=== PATIENT | male | born 1975 | race Caucasian/White ===

== ENCOUNTER 2016-09-18 11:19 | Emergency (ER) | payer OTHER ==
[2016-09-18 12:18] LABS: HEMOGLOBIN 15.7 gm/dl (14.0-17.5); RED BLOOD COUNT 5.2 M/UL (4.20-5.50); WHITE BLOOD COUNT 6.6 K/UL (4.5-11.0)
[2016-09-18 12:44] LABS: BUN/CREATININE RATIO 19 (0-10)
== END 2016-09-18 13:24 | disposition home or self-care (01) ==
LOC: ER1 11:19
PROVIDERS: Nurse Practitioner Family
DX: R11.10 Vomiting, unspecified (principal); R19.7 Diarrhea, unspecified; Z90.49 Acquired absence of other specified parts of digestive tract
CPT/HCPCS: 36415; 80053; 81001; 82150; 83690; 85025; 96361; 96374; 99284; J2405

== ENCOUNTER 2016-11-28 19:06 | Emergency (ER) | payer OTHER ==
[2016-11-28 21:27] LABS: HEMOGLOBIN 15.5 gm/dl (14.0-17.5); RED BLOOD COUNT 5.11 M/UL (4.20-5.50); WHITE BLOOD COUNT 8.1 K/UL (4.5-11.0)
[2016-11-28 21:48] LABS: BUN/CREATININE RATIO 26 (0-10)
== END 2016-11-29 00:46 | disposition home or self-care (01) ==
LOC: ER1 19:06
PROVIDERS: Specialist/Technologist Athletic Trainer
DX: I95.1 Orthostatic hypotension (principal); E86.0 Dehydration
CPT/HCPCS: 36415; 70450; 71010; 80053; 85025; 93005; 99284

== ENCOUNTER 2016-11-30 11:48 | Emergency (ER) | payer OTHER ==
[2016-11-30 13:32] LABS: HEMOGLOBIN 14.9 gm/dl (14.0-17.5); RED BLOOD COUNT 4.96 M/UL (4.20-5.50); WHITE BLOOD COUNT 6.8 K/UL (4.5-11.0)
[2016-11-30 13:50] LABS: BUN/CREATININE RATIO 17 (0-10)
== END 2016-11-30 15:53 | disposition home or self-care (01) ==
LOC: ER1 11:48
PROVIDERS: Physician Assistant
DX: H81.10 Benign paroxysmal vertigo, unspecified ear (principal); Z90.49 Acquired absence of other specified parts of digestive tract
CPT/HCPCS: 36415; 80053; 81001; 85025; 99284

== ENCOUNTER → 2021-06-08 | Outpatient (CLI) | payer OTHER ==
[~2021-06-08] MED LIST: ASPIRIN EC81 MG PO; ATORVASTATIN CA20 MG PO; FLONASE 0.05% N16 GM; IBUPROFEN600 MG PO; MEDROL4 MG PO; METOPROLOL SUCC25 MG PO; NAPROSYN500 MG PO; NITROGLYCERIN0.4 MG SL; TRAMADOL HCL50 MG PO; ZYRTEC10 MG PO
== END ==
LOC: KOH-I 09:11
DX: R79.89 Other specified abnormal findings of blood chemistry (principal); K76.0 Fatty (change of) liver, not elsewhere classified
CPT/HCPCS: 76700

== ENCOUNTER 2021-10-29 11:50 | Emergency (ER) | payer OTHER ==
[2021-10-29 12:26] LABS: HEMOGLOBIN 14.8 gm/dl (14.0-17.5); RED BLOOD COUNT 4.87 M/UL (4.20-5.50)
[2021-10-29 12:48] LABS: BUN/CREATININE RATIO 31 (0-10)
[2021-10-29] MEDS ORDERED: PREDNISONE20 MG PO (14:26)
== END 2021-10-29 14:32 | disposition home or self-care (01) ==
LOC: ER1 11:50
PROVIDERS: Nurse Practitioner
DX: M54.9 Dorsalgia, unspecified (principal); G89.29 Other chronic pain; E11.9 Type 2 diabetes mellitus without complications
CPT/HCPCS: 72131; 80053; 81001; 85025; 85652; 86140; 99284

== ENCOUNTER 2021-11-13 23:10 | Emergency (ER) | payer OTHER ==
[~2021-11-13 23:10] MED LIST changes: +PREDNISONE20 MG PO
[2021-11-14] MEDS ORDERED: NORFLEX 100 MG100 MG PO (01:44)
[2021-11-14] MEDS ORDERED: ZOFRAN ODT 4 MG4 MG PO (01:44)
[2021-11-14] MEDS ORDERED: IBUPROFEN600 MG PO (01:44)
== END 2021-11-14 02:06 | disposition home or self-care (01) ==
LOC: ER1 23:10
DX: N20.1 Calculus of ureter (principal); M51.87 Other intervertebral disc disorders, lumbosacral region; E11.9 Type 2 diabetes mellitus without complications; Z79.4 Long term (current) use of insulin; X50.1XXA Overexertion from prolonged static or awkward postures, initial encounter
CPT/HCPCS: 72128; 72131; 96374; 96375; 99284; J2360; J2405

== ENCOUNTER → 2021-11-20 | Outpatient (CLI) | payer OTHER ==
[~2021-11-20] MED LIST changes: +NORFLEX 100 MG100 MG PO; +ZOFRAN ODT 4 MG4 MG PO
== END ==
LOC: KOH-I 09:15
DX: M51.16 Intervertebral disc disorders with radiculopathy, lumbar region (principal)
CPT/HCPCS: 72148

== ENCOUNTER 2022-01-25 21:03 | Emergency (ER) | payer OTHER | END 2022-01-26 00:44 | disposition left against medical advice (07) | LOC: ER1 21:03 | DX: Z53.21 Procedure and treatment not carried out due to patient leaving prior to being seen by health care provider (principal) | CPT/HCPCS: 0240U ==